=== PATIENT | male | born 1975 | race African-American/Black ===

== ENCOUNTER 2017-10-24 02:07 | Inpatient (IN) | payer MEDICAID, OTHER ==
[~2017-10-24] VITALS: Ht 185.4 cm; Wt 72.8 kg
[2017-10-24] MEDS ORDERED: ACETAMINOPHEN 325 MG TABLET ONE (02:22)
[2017-10-24] MEDS ORDERED: SODIUM CHLORIDE FLUSH 10ML SYR IVF ONE (02:30)
[2017-10-24] MEDS ORDERED: ACETAMINOPHEN 325 MG TABLET PO ONE (02:30)
[2017-10-24] MEDS ORDERED: SODIUM CHLORIDE 0.9% 1,000ML IVBOLUS ONE (02:30)
[2017-10-24 02:52] LABS: MEAN CORPUSCULAR HEMOGLOBIN 31.8 pg (27.5-34.5); MEAN CORPUSCULAR VOLUME 93.6 fL (81-97); MEAN PLATELET VOLUME 8.1 fL (7.4-10.4); PLATELET COUNT 194 x10^3/uL (130-400); RED BLOOD COUNT 4.23 x10^6/uL (4.38-5.82); RED CELL DISTRIBUTION WIDTH 14.1 % (9.4-14.8)
[2017-10-24 03:03] LABS: ALANINE AMINOTRANSFERASE 24 U/L (12-78); ALBUMIN 3.4 g/dL (3.4-5.0); ANION GAP 9 mmol/L (5-15); CALCIUM 8.9 mg/dL (8.5-10.1); CHLORIDE 98 mmol/L (98-107)
[2017-10-24 03:05] LABS: MD YES
[2017-10-24 03:06] LABS: ALKALINE PHOSPHATASE 89 U/L (45-117); CREATININE 1.08 mg/dL (0.7-1.3); TOTAL PROTEIN 9.1 g/dL (6.4-8.2)
[2017-10-24 03:07] LABS: BAND#(MANUAL) 0.15 x10^3/uL; BANDS%(MANUAL) 1 % (0-7); LYMPH#(MANUAL) 1.19 x10^3/uL (1-3.4); LYMPHS% (MANUAL) 8 % (22-44); MONOS#(MANUAL) 0.89 x10^3/uL (0.3-2.7); MONOS% (MANUAL) 6 % (2-9); SEG#(MANUAL) 12.67 x10^3/uL (1.8-6.8); SEGS% (MANUAL) 85 % (42-75)
[2017-10-24 03:08] LABS: <PLATELET ESTIMATE> ADEQUATE; <PLT MORPHOLOGY> NORMAL PLT MORPH; ANISOCYTOSIS 1+
[2017-10-24] MEDS ORDERED: AZITHROMYCIN 500 MG in SODIUM CHLORIDE 0.9% 250 ML IVPB ONE (03:30)
[2017-10-24] MEDS ORDERED: CEFTRIAXONE PMX 1GM/50ML 50 ML IVPB ONE (03:30)
[2017-10-24] MEDS ORDERED: CEFTRIAXONE PMX 1GM/50ML 50 ML ONE (03:47)
[2017-10-24] MEDS ORDERED: IBUPROFEN 200 MG TABLET ONE (03:47)
[2017-10-24] MEDS ORDERED: SODIUM CHLORIDE 0.9% 1,000 ML IV ONE (03:57)
[2017-10-24] MEDS ORDERED: IBUPROFEN 200 MG TABLET PO ONE (04:00)
[2017-10-24] MEDS ORDERED: ONDANSETRON 2MG/ML, 2ML IVPush PRN (04:00)
[2017-10-24 04:07] LABS: RAPID INFLUENZA A Negative (Negative); RAPID INFLUENZA B Negative (Negative)
[2017-10-24 05:30] VITALS: BP 106/86
[2017-10-24] MEDS ORDERED: ONDANSETRON ODT 4 MG PO PRN (07:30)
[2017-10-24] MEDS ORDERED: DOCUSATE 100 MG CAPSULE PO PRN (07:30)
[2017-10-24] MEDS ORDERED: ACETAMINOPHEN 325 MG TABLET PO PRN (07:30)
[2017-10-24] MEDS ORDERED: ENALAPRILAT 1.25 MG/ML, 2ML IVPush PRN (07:30)
[2017-10-24] MEDS: ENOXAPARIN 40 MG/0.4 ML SQ SCH (08:42)
[2017-10-24] MEDS: SODIUM CHLORIDE 0.9% 1,000 ML IV SCH ×2 (08:42→16:58)
[2017-10-24] MEDS: CEFTRIAXONE PMX 2GM/50ML 50 ML IV SCH (08:42)
[2017-10-24] MEDS: AZITHROMYCIN 500 MG in SODIUM CHLORIDE 0.9% 250 ML IV SCH (09:20)
[2017-10-24 12:29] VITALS: BP 95/59
[2017-10-24 19:21] VITALS: BP 95/58
[2017-10-25 02:52] VITALS: BP 97/62
[2017-10-25 03:48] LABS: ALANINE AMINOTRANSFERASE 16 U/L (12-78); ALBUMIN 2.3 g/dL (3.4-5.0); ANION GAP 6 mmol/L (5-15); CALCIUM 8.4 mg/dL (8.5-10.1); CHLORIDE 108 mmol/L (98-107); CREATININE 0.81 mg/dL (0.7-1.3)
[2017-10-25 03:50] LABS: BASOPHILS # (AUTO) 0.01 x10^3/uL (0-0.1); BASOPHILS % (AUTO) 0 % (0-1); EOSINOPHILS # (AUTO) 0.27 x10^3/uL (0-0.4); EOSINOPHILS % (AUTO) 4 % (1-7); LYMPHOCYTES # (AUTO) 0.76 x10^3/uL (1-3.4); LYMPHOCYTES % (AUTO) 11 % (22-44); MD NO; MEAN CORPUSCULAR HGB CONC 33.3 g/dL (33.2-36.2); MEAN CORPUSCULAR VOLUME 96.3 fL (81-97); MEAN PLATELET VOLUME 8.2 fL (7.4-10.4); MONOCYTES # (AUTO) 0.84 x10^3/uL (0.2-0.8); MONOCYTES % (AUTO) 13 % (2-9); NEUTROPHILS # (AUTO) 4.85 x10^3/uL (1.8-6.8); NEUTROPHILS % (AUTO) 72 % (42-75); PLATELET COUNT 191 x10^3/uL (130-400); RED BLOOD COUNT 3.75 x10^6/uL (4.38-5.82); RED CELL DISTRIBUTION WIDTH 13.9 % (9.4-14.8)
[2017-10-25 03:51] LABS: ALKALINE PHOSPHATASE 69 U/L (45-117); BILIRUBIN,TOTAL 0.7 mg/dL (0.2-1.0); TOTAL PROTEIN 6.8 g/dL (6.4-8.2)
[2017-10-25] MEDS: SODIUM CHLORIDE 0.9% 1,000 ML IV SCH (03:56)
[2017-10-25 06:57] VITALS: BP 104/68
[2017-10-25] MEDS: CEFTRIAXONE PMX 2GM/50ML 50 ML IV SCH (08:50)
[2017-10-25] MEDS: ENOXAPARIN 40 MG/0.4 ML SQ SCH (08:50)
[2017-10-25] MEDS ORDERED: AZIT500T5 PO (09:20)
[2017-10-25] MEDS ORDERED: CEFD300C37 PO (09:25)
[2017-10-25] MEDS: AZITHROMYCIN 500 MG in SODIUM CHLORIDE 0.9% 250 ML IV SCH (10:28)
== END 2017-10-25 12:50 | disposition home or self-care (01) | DRG 871 ==
LOC: ED 03:17 → EDIP 03:57 → 3NW 04:52 → DCLOUNGE 10-25 12:39
PROVIDERS: ADMIT Surgery; ATTEND Surgery
DX: A41.9 Sepsis, unspecified organism (principal); J15.9 Unspecified bacterial pneumonia; E87.1 Hypo-osmolality and hyponatremia; F17.200 Nicotine dependence, unspecified, uncomplicated; F12.90 Cannabis use, unspecified, uncomplicated; R73.9 Hyperglycemia, unspecified; R00.0 Tachycardia, unspecified; Z59.0 Homelessness; F10.20 Alcohol dependence, uncomplicated
CPT/HCPCS: 36415; 71046; 80053; 83605; 83735; 84100; 84145; 85025; 87040; 87070; 87205; 87400; 93005; 96365; J0456; J0696; J1650; J7030; J7050

== ENCOUNTER 2017-12-24 06:49 | Emergency (ER) | payer MEDICAID ==
[~2017-12-24] VITALS: Ht 185.4 cm; Wt 71.5 kg
[~2017-12-24 06:49] MED LIST: AZIT500T5 PO; CEFD300C37 PO
[2017-12-24 08:28] LABS: MEAN CORPUSCULAR HGB CONC 33.5 g/dL (33.2-36.2); MEAN CORPUSCULAR VOLUME 92.5 fL (81-97); MEAN PLATELET VOLUME 7.5 fL (7.4-10.4); PLATELET COUNT 233 x10^3/uL (130-400); RED CELL DISTRIBUTION WIDTH 14.9 % (9.4-14.8)
[2017-12-24 08:40] LABS: ALANINE AMINOTRANSFERASE 25 U/L (12-78); ALBUMIN 2.8 g/dL (3.4-5.0); ANION GAP 6 mmol/L (5-15); CALCIUM 8.5 mg/dL (8.5-10.1); CHLORIDE 98 mmol/L (98-107); CREATININE 0.89 mg/dL (0.7-1.3)
[2017-12-24 08:42] LABS: ALKALINE PHOSPHATASE 86 U/L (45-117); BILIRUBIN,TOTAL 1.8 mg/dL (0.2-1.0); TOTAL PROTEIN 7.8 g/dL (6.4-8.2)
[2017-12-24 08:46] LABS: BASOPHILS # (AUTO) 0.02 x10^3/uL (0-0.1); BASOPHILS % (AUTO) 0 % (0-1); EOSINOPHILS # (AUTO) 0.17 x10^3/uL (0-0.4); EOSINOPHILS % (AUTO) 2 % (1-7); LYMPHOCYTES # (AUTO) 0.61 x10^3/uL (1-3.4); LYMPHOCYTES % (AUTO) 5 % (22-44); MD SCAN; MONOCYTES # (AUTO) 1.34 x10^3/uL (0.2-0.8); MONOCYTES % (AUTO) 12 % (2-9); NEUTROPHILS # (AUTO) 9.36 x10^3/uL (1.8-6.8); NEUTROPHILS % (AUTO) 81 % (42-75)
[2017-12-24] MEDS ORDERED: LEVOFLOXACIN 750 MG TABLET ONE (10:24)
[2017-12-24] MEDS ORDERED: LEVOFLOXACIN 750 MG TABLET PO ONE (10:30)
[2017-12-24 10:32] VITALS: BP 105/59
== END 2017-12-24 10:35 | disposition home or self-care (01) ==
LOC: ED 07:55
DX: J15.9 Unspecified bacterial pneumonia (principal); F17.210 Nicotine dependence, cigarettes, uncomplicated
CPT/HCPCS: 36415; 71046; 80053; 83605; 85025; 87040; 93005; 99285

== ENCOUNTER 2018-08-04 15:38 | Emergency (ER) | payer OTHER, MEDICAID ==
[~2018-08-04] VITALS: Ht 185.4 cm; Wt 72.0 kg
[2018-08-04] MEDS ORDERED: PROPOFOL 10 MG/ML, 20ML ONE ×2 (15:58→15:59)
[2018-08-04] MEDS ORDERED: SODIUM CHLORIDE FLUSH 10ML SYR IVF ONE (16:00)
[2018-08-04] MEDS ORDERED: PLEASE ENTER HEIGHT AND WEIGHT MC SCH (16:00)
[2018-08-04] MEDS ORDERED: FENTANYL PF 100 MCG/2ML IV ONE (16:00)
[2018-08-04] MEDS ORDERED: FENTANYL PF 100 MCG/2ML ONE (16:00)
[2018-08-04] MEDS ORDERED: PROPOFOL 10 MG/ML, 20ML IVPush ONE (17:00)
[2018-08-04 17:24] VITALS: BP 115/72
== END 2018-08-04 17:34 | disposition home or self-care (01) ==
LOC: ED 17:28
DX: S43.005A Unspecified dislocation of left shoulder joint, initial encounter (principal); F17.200 Nicotine dependence, unspecified, uncomplicated; X58.XXXA Exposure to other specified factors, initial encounter; Y93.89 Activity, other specified; Y92.89 Other specified places as the place of occurrence of the external cause; Y99.8 Other external cause status
CPT/HCPCS: 23650; 73020; 99285; J2704; J3010

== ENCOUNTER 2018-09-09 16:57 | Emergency (ER) | payer OTHER, MEDICAID ==
[~2018-09-09] VITALS: Ht 185.4 cm; Wt 70.0 kg
[2018-09-09 16:59] VITALS: BP 144/103
== END 2018-09-09 18:06 | disposition home or self-care (01) ==
LOC: ED 17:03
DX: Z00.00 Encounter for general adult medical examination without abnormal findings (principal)
CPT/HCPCS: 36415; 86705; 86706; 86803; 87340; 87521; 87806; 99283; G0475

== ENCOUNTER 2018-10-12 19:02 | Inpatient (IN) | payer MEDICAID, OTHER ==
[~2018-10-12] VITALS: Ht 185.4 cm; Wt 74.8 kg
[2018-10-12] MEDS ORDERED: ACETAMINOPHEN 325 MG TABLET PO ONE (19:30)
[2018-10-12] MEDS ORDERED: ACETAMINOPHEN 325 MG TABLET ONE (19:30)
[2018-10-12 19:36] LABS: RAPID INFLUENZA A Negative (Negative); RAPID INFLUENZA B Negative (Negative)
[2018-10-12 19:51] LABS: BASOPHILS % (AUTO) 0 % (0-1); EOSINOPHILS # (AUTO) 0.04 x10^3/uL (0-0.4); EOSINOPHILS % (AUTO) 0 % (1-7); LYMPHOCYTES % (AUTO) 4 % (22-44); MD NO; MEAN CORPUSCULAR HEMOGLOBIN 32.2 pg (27.5-34.5); MEAN CORPUSCULAR HGB CONC 34.1 g/dL (33.2-36.2); MEAN CORPUSCULAR VOLUME 94.3 fL (81-97); MONOCYTES # (AUTO) 0.84 x10^3/uL (0.2-0.8); MONOCYTES % (AUTO) 8 % (2-9); NEUTROPHILS # (AUTO) 9.68 x10^3/uL (1.8-6.8); NEUTROPHILS % (AUTO) 88 % (42-75); PLATELET COUNT 243 x10^3/uL (130-400); RED BLOOD COUNT 3.89 x10^6/uL (4.38-5.82); RED CELL DISTRIBUTION WIDTH 14.1 % (9.4-14.8)
[2018-10-12] MEDS ORDERED: CEFTRIAXONE 1,000 MG in SODIUM CHLORIDE 0.9% 50 ML IVPB ONE (20:00)
[2018-10-12] MEDS ORDERED: AZITHROMYCIN 500 MG in SODIUM CHLORIDE 0.9% 250 ML IV ONE (20:00)
[2018-10-12 20:04] LABS: ALBUMIN 3.8 g/dL (3.4-5.0); ANION GAP 9 mmol/L (5-15); CALCIUM 8.8 mg/dL (8.5-10.1); CHLORIDE 105 mmol/L (98-107); CREATININE 0.96 mg/dL (0.7-1.3)
[2018-10-12 20:08] LABS: TROPONIN I < 0.015 ng/mL (0.000-0.045)
[2018-10-12] MEDS ORDERED: CEFTRIAXONE 1,000 MG ONE (20:32)
[2018-10-12] MEDS ORDERED: CEFTRIAXONE PMX 1GM/50ML 50 ML ONE (20:36)
[2018-10-12] MEDS ORDERED: SODIUM CHLORIDE 0.9% 1,000 ML IV SCH (21:24)
[2018-10-12] MEDS ORDERED: morphine SULFATE 10 MG/ML, 1ML IVPush PRN (21:30)
[2018-10-12] MEDS ORDERED: POLYETHYLENE GLYCOL 17 GM PACKET PO PRN (21:30)
[2018-10-12] MEDS ORDERED: OXYcodone IR 5MG TABLET PO PRN (21:30)
[2018-10-12] MEDS ORDERED: PROMETHAZINE 25 MG/ML, 1ML IM PRN (21:30)
[2018-10-12] MEDS ORDERED: LABETALOL 5MG/ML, 20ML IVPush PRN (21:30)
[2018-10-12] MEDS ORDERED: BISACODYL 10 MG SUPP PR PRN (21:30)
[2018-10-12] MEDS ORDERED: GABAPENTIN 300 MG CAPSULE PO PRN (21:30)
[2018-10-12] MEDS ORDERED: DOCUSATE 100 MG CAPSULE PO PRN (21:30)
[2018-10-12] MEDS ORDERED: ONDANSETRON ODT 4 MG PO PRN (21:30)
[2018-10-12] MEDS ORDERED: ONDANSETRON 2MG/ML, 2ML IVPush PRN (21:30)
[2018-10-12] MEDS ORDERED: CEFTRIAXONE PMX 1GM/50ML 50 ML IV ONE (21:30)
[2018-10-12] MEDS ORDERED: hydrALAzine 20 MG/ML, 1ML IVPush PRN (21:30)
[2018-10-12 22:26] LABS: HEMOGLOBIN A1C 5.4 % (4.2-6.3)
[2018-10-12 22:29] VITALS: BP 106/69
[2018-10-12 22:30] LABS: FREE T4 (FREE THYROXINE) 0.82 ng/dL (0.76-1.46); THYROID STIMULATING HORMONE 0.432 mIU/L (0.358-3.740)
[2018-10-12 23:12] LABS: MICROSCOPIC AUTO
[2018-10-12] MEDS: SODIUM CHLORIDE 0.9% 1,000 ML IV SCH (23:14)
[2018-10-12] MEDS: HEPARIN 5,000 UNITS/ML, 1ML SQ SCH (23:14)
[2018-10-12 23:18] LABS: CULTURE INDICATED? YES
[2018-10-13] MEDS ORDERED: ACETAMINOPHEN 325 MG TABLET PO PRN (02:00)
[2018-10-13 02:20] VITALS: BP 108/63
[2018-10-13 06:14] LABS: CHLORIDE 106 mmol/L (98-107)
[2018-10-13 06:18] LABS: BASOPHILS # (AUTO) 0.01 x10^3/uL (0-0.1); BASOPHILS % (AUTO) 0 % (0-1); EOSINOPHILS # (AUTO) 0.08 x10^3/uL (0-0.4); EOSINOPHILS % (AUTO) 1 % (1-7); LYMPHOCYTES # (AUTO) 0.57 x10^3/uL (1-3.4); LYMPHOCYTES % (AUTO) 8 % (22-44); MD NO; MEAN CORPUSCULAR HEMOGLOBIN 31.8 pg (27.5-34.5); MEAN CORPUSCULAR HGB CONC 33.6 g/dL (33.2-36.2); MEAN CORPUSCULAR VOLUME 94.5 fL (81-97); MEAN PLATELET VOLUME 7.6 fL (7.4-10.4); MONOCYTES # (AUTO) 1.08 x10^3/uL (0.2-0.8); MONOCYTES % (AUTO) 15 % (2-9); NEUTROPHILS # (AUTO) 5.38 x10^3/uL (1.8-6.8); NEUTROPHILS % (AUTO) 76 % (42-75); PLATELET COUNT 185 x10^3/uL (130-400); RED BLOOD COUNT 3.18 x10^6/uL (4.38-5.82); RED CELL DISTRIBUTION WIDTH 14.3 % (9.4-14.8)
[2018-10-13] MEDS: SODIUM CHLORIDE 0.9% 1,000 ML IV SCH ×2 (06:19→12:29)
[2018-10-13 06:23] LABS: ALANINE AMINOTRANSFERASE 25 U/L (12-78); ALBUMIN 2.8 g/dL (3.4-5.0); ALKALINE PHOSPHATASE 82 U/L (45-117); ANION GAP 8 mmol/L (5-15); CALCIUM 7.6 mg/dL (8.5-10.1); CHOLESTEROL, TOTAL 149 mg/dL (140-239); CREATININE 0.73 mg/dL (0.7-1.3); HDL CHOL % 51 % (26-37); HDL CHOLESTEROL (DIRECT) 76 mg/dL (40-60); LDL CHOLESTEROL,CALCULATED 57 mg/dL (54-169); LDL/HDL RATIO 0.8 (0.5-3.0); TOTAL PROTEIN 7.2 g/dL (6.4-8.2); TRIGLYCERIDES 82 mg/dL (50-200); VLDL CHOLESTEROL 16 mg/dL (0-25)
[2018-10-13 07:22] VITALS: BP 104/63
[2018-10-13] MEDS: HEPARIN 5,000 UNITS/ML, 1ML SQ SCH ×2 (07:56→15:56)
[2018-10-13] MEDS: MULTIVITAMIN 1 TABLET PO SCH (07:56)
[2018-10-13 13:28] VITALS: BP 101/62
[2018-10-13] MEDS ORDERED: KETOROLAC 30 MG/1 ML IVPush PRN (15:00)
[2018-10-13 18:54] VITALS: BP 106/59
[2018-10-13] MEDS: CEFTRIAXONE PMX 2GM/50ML 50 ML IV SCH (19:27)
[2018-10-13] MEDS: AZITHROMYCIN 500 MG in SODIUM CHLORIDE 0.9% 250 ML IV SCH (20:09)
[2018-10-13] MEDS ORDERED: SODIUM CHLORIDE 0.9% 1,000 ML IV SCH (21:24)
[2018-10-14] MEDS: HEPARIN 5,000 UNITS/ML, 1ML SQ SCH ×3 (00:13→16:25)
[2018-10-14 01:15] VITALS: BP 101/63
[2018-10-14] MEDS: SODIUM CHLORIDE 0.9% 1,000 ML IV SCH ×2 (03:17→16:25)
[2018-10-14 05:47] LABS: MEAN CORPUSCULAR HEMOGLOBIN 32.1 pg (27.5-34.5); MEAN CORPUSCULAR HGB CONC 33.7 g/dL (33.2-36.2); MEAN CORPUSCULAR VOLUME 95.3 fL (81-97); MEAN PLATELET VOLUME 7.8 fL (7.4-10.4); PLATELET COUNT 198 x10^3/uL (130-400); RED BLOOD COUNT 3.11 x10^6/uL (4.38-5.82); RED CELL DISTRIBUTION WIDTH 13.9 % (9.4-14.8)
[2018-10-14 05:57] LABS: CALCIUM 7.8 mg/dL (8.5-10.1); CHLORIDE 103 mmol/L (98-107); CREATININE 0.88 mg/dL (0.7-1.3)
[2018-10-14 06:14] LABS: ANION GAP 4 mmol/L (5-15)
[2018-10-14 06:25] LABS: BASOPHILS # (AUTO) 0.01 x10^3/uL (0-0.1); BASOPHILS % (AUTO) 0 % (0-1); EOSINOPHILS # (AUTO) 0.13 x10^3/uL (0-0.4); EOSINOPHILS % (AUTO) 1 % (1-7); LYMPHOCYTES # (AUTO) 0.73 x10^3/uL (1-3.4); LYMPHOCYTES % (AUTO) 8 % (22-44); MD SCAN; MONOCYTES # (AUTO) 0.98 x10^3/uL (0.2-0.8); MONOCYTES % (AUTO) 11 % (2-9); NEUTROPHILS # (AUTO) 6.98 x10^3/uL (1.8-6.8); NEUTROPHILS % (AUTO) 79 % (42-75)
[2018-10-14 08:12] VITALS: BP 101/64
[2018-10-14] MEDS: MULTIVITAMIN 1 TABLET PO SCH (09:02)
[2018-10-14 14:08] VITALS: BP 112/71
[2018-10-14 19:06] VITALS: BP 111/75
[2018-10-14] MEDS: CEFTRIAXONE PMX 2GM/50ML 50 ML IV SCH (20:20)
[2018-10-14] MEDS: AZITHROMYCIN 500 MG in SODIUM CHLORIDE 0.9% 250 ML IV SCH (21:36)
[2018-10-15 02:08] VITALS: BP 119/67
[2018-10-15] MEDS: SODIUM CHLORIDE 0.9% 1,000 ML IV SCH (06:14)
[2018-10-15 07:14] VITALS: BP 118/79
[2018-10-15] MEDS: MULTIVITAMIN 1 TABLET PO SCH (08:39)
[2018-10-15] MEDS: HEPARIN 5,000 UNITS/ML, 1ML SQ SCH ×2 (08:39)
[2018-10-15] MEDS ORDERED: CEFD300C37 PO (08:56)
[2018-10-15 11:38] VITALS: BP 112/72
== END 2018-10-15 12:24 | disposition home or self-care (01) | DRG 871 ==
LOC: ED 19:55 → EDIP 21:28 → 3NE 22:14 → DCLOUNGE 10-15 12:15
PROVIDERS: ADMIT Internal Medicine; ATTEND Internal Medicine
DX: A41.9 Sepsis, unspecified organism (principal); E43 Unspecified severe protein-calorie malnutrition; J15.9 Unspecified bacterial pneumonia; J96.01 Acute respiratory failure with hypoxia; E87.2 Acidosis; D64.9 Anemia, unspecified; Z68.21 Body mass index [BMI] 21.0-21.9, adult; F10.120 Alcohol abuse with intoxication, uncomplicated; F17.210 Nicotine dependence, cigarettes, uncomplicated; Y90.8 Blood alcohol level of 240 mg/100 ml or more; Z87.01 Personal history of pneumonia (recurrent); Z91.14 Patient's other noncompliance with medication regimen
CPT/HCPCS: 36415; 71045; 80048; 80053; 80061; 80307; 81001; 82040; 82306; 82607; 83036; 83605; 83735; 84145; 84439; 84443; 84484; 85025; 87040; 87086; 87400; 96365; 96375; 99285; G0378; J0456; J0696; J1644; J1885; J7030; J7050

== ENCOUNTER 2019-03-26 21:17 | Emergency (ER) | payer MEDICAID, OTHER ==
[~2019-03-26] VITALS: Ht 182.9 cm; Wt 70.0 kg
[2019-03-26 21:19] VITALS: BP 127/73
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
[2019-03-26] MEDS ORDERED: DIPH,PERTUSS(ACELL),TET VAC/PF 0.5 ML IM-VACC ONE ×2 (22:00→22:01)
[2019-03-26] MEDS ORDERED: LIDOCAINE 1%, 10ML INFIL ONE (22:00)
[2019-03-26] MEDS ORDERED: LIDOCAINE-MPF 1%, 5ML ONE (22:01)
[2019-03-26] MEDS ORDERED: BACITRACIN ZINC OINT 500U/GM, 0.9 GM ONE (22:01)
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
== END 2019-03-26 22:34 | disposition home or self-care (01) ==
LOC: ED 22:28
DX: S51.811A Laceration without foreign body of right forearm, initial encounter (principal); W25.XXXA Contact with sharp glass, initial encounter; Y93.89 Activity, other specified; Y92.410 Unspecified street and highway as the place of occurrence of the external cause; Y99.8 Other external cause status
CPT/HCPCS: 12032; 90471; 90715; 99285; J3490

== ENCOUNTER 2019-04-18 19:25 | Emergency (ER) | payer OTHER ==
[~2019-04-18] VITALS: Ht 185.4 cm; Wt 68.6 kg
[2019-04-18] MEDS ORDERED: HYDROmorphone 2 MG/ML, 1ML ONE (19:59)
[2019-04-18] MEDS ORDERED: HYDROmorphone 2 MG/ML, 1ML IVPush STA (20:04)
--- NOTE | 2019-04-18 20:07 | NUR ---
PT AMBULATORY TO T2. CO L SHOULDER PAIN X THIRTY MINUTES. +CMS. HX OF SHOULDER DISLOCATION X THREE REQUIRING SEDATION/REDUCTION. PT REPORTS "I WAS JUST LAYING IN BED WITH MY " PRIOR TO INJURY. IV ESTBALISHED. ERP AT BEDSIDE TO ATTEMPT REDUCTION. VERBAL ORDER RECEIVED FOR 1MG DILAUDID. PT MEDICATED PER ORDER. REDUCTION UNSUCCESSFUL. AWAITING FURTHER ORDERS.
[2019-04-18] MEDS ORDERED: PROPOFOL 10 MG/ML, 20ML ONE (20:13)
--- NOTE | 2019-04-18 20:28 | NUR ---
CONCENT FOR PROCEDURAL SEDATION AND REDUCTION OF L SHOULDER SIGNED AND IS AT BEDSIDE. BP/SPO2/ECG MONITORING IN PLACE. PT ON 2L O2 BY NC FOR SUPPORT.
[2019-04-18] MEDS ORDERED: PROPOFOL 10 MG/ML, 20ML IVPush ONE (20:30)
--- NOTE | 2019-04-18 21:08 | NUR ---
2055: TIME OUT 2057: BEGIN PROCEDURE. PT MEDICATED BY ERP WITH PROPOFOL. TOTAL 120MG IVP GIVEN FOR SEDATIVE EFFECT. 2104: REDUCTION COMPLETED. +CMS. SLING PLACED. AIRWAY PATENT; MAINTAINING AIRWAY.
[2019-04-18 21:10] VITALS: BP 124/91
--- NOTE | 2019-04-18 21:32 | NUR ---
PT AWAKE/ALERT. SPEECH CLEAR. PT ANSWERING ALL QUESTIONS APPROPRIATELY AND FOLLOWING ALL COMMANDS. MAINTAINING SPO2 >90% ON RA. RR WNL. +CMS. SPLING IN PLACE. PT TAKING PO FLUIDS WO DIFFICULTY. REPEAT XRAY COMPLETED. CHART UP FOR RECHECK.
--- NOTE | 2019-04-18 21:58 | NUR ---
VSS. PT AMBULATORY WITH EASE AND CONTINUES TO DENY PAIN. PT TAKING PO FLUIDS WO DIFFICULTY. IV DC'D. DC EDUCATION PROVIDED, PT DEMONSTRATES UNDERSTANDING. PT AMBULATED STEADILY TO DC WITH RN. PT TO USE TAXI FOR SAFE TRANSPORT HOME.
== END 2019-04-18 22:02 | disposition home or self-care (01) ==
LOC: ED 21:28 → MERGE 21:28 → ED 22:02
DX: S43.005A Unspecified dislocation of left shoulder joint, initial encounter (principal); F17.200 Nicotine dependence, unspecified, uncomplicated; X58.XXXA Exposure to other specified factors, initial encounter; Y93.89 Activity, other specified; Y92.009 Unspecified place in unspecified non-institutional (private) residence as the place of occurrence of the external cause; Y99.8 Other external cause status
CPT/HCPCS: 23650; 73030; 93005; 96374; 99285; J1170

== ENCOUNTER 2019-05-25 10:49 | Emergency (ER) | payer OTHER ==
[~2019-05-25] VITALS: Ht 182.9 cm; Wt 72.3 kg
[2019-05-25 11:30] VITALS: BP 115/69
== END 2019-05-25 11:34 | disposition home or self-care (01) ==
LOC: ED 11:18
DX: S43.005A Unspecified dislocation of left shoulder joint, initial encounter (principal); X58.XXXA Exposure to other specified factors, initial encounter; Y93.89 Activity, other specified; Y92.89 Other specified places as the place of occurrence of the external cause; Y99.8 Other external cause status
CPT/HCPCS: 99283

== ENCOUNTER 2019-11-06 21:57 | Emergency (ER) | payer MEDICAID ==
[~2019-11-06] VITALS: Ht 193 cm; Wt 80.0 kg
[~2019-11-06 21:57] MED LIST changes: +AZIT500T10 PO; -AZIT500T5 PO
[2019-11-06 22:09] VITALS: BP 128/78
--- NOTE | 2019-11-06 22:24 | NUR ---
PT RESTING IN VIEW OF NURSES STATION, SEEN BY ERP, REFUSED BREATHALYZER, ERP STATES HE WILL REASSESS IN AN HOUR
--- NOTE | 2019-11-06 22:55 | NUR ---
PT ENCOURAGED TO STAY FOR SECOND ERP EVAL, PT REFUSED BREATHALYZER A SECOND TIME, ELOPED OUT LOBBY WITH STEADY GAIT, [id number]
== END 2019-11-06 23:30 | disposition left against medical advice (07) ==
LOC: ED 23:24
DX: G89.29 Other chronic pain (principal); M25.512 Pain in left shoulder; F10.129 Alcohol abuse with intoxication, unspecified; Y90.0 Blood alcohol level of less than 20 mg/100 ml
CPT/HCPCS: 99283

== ENCOUNTER 2019-11-08 10:00 | Emergency (ER) | payer MEDICAID ==
[~2019-11-08] VITALS: Ht 185.4 cm; Wt 72.6 kg
--- NOTE | 2019-11-08 10:36 | NUR ---
Pt ambulatory to xray with tech.
[2019-11-08] MEDS ORDERED: PROPOFOL 10 MG/ML, 20ML IV ONE (11:00)
[2019-11-08] MEDS ORDERED: PROPOFOL 10 MG/ML, 20ML ONE (11:01)
--- NOTE | 2019-11-08 11:36 | NUR ---
WM SAHM AT BEDSIDE FOR PROCEDURE LEFT ARM DISLOCATION. SEE PROCEDURAL SEDATION REPORT. VSS REMAINED STABLE, PROPOFOL 100 MCG ADMINISTERED BY WM. XRAY AND SLING COMPLETED AFTER PROCEDURE. CMS INTACT.
--- NOTE | 2019-11-08 12:51 | NUR ---
DISCHARGE INSTRUCTIONS REVIEWED
[2019-11-08 13:00] VITALS: BP 117/72
== END 2019-11-08 13:06 | disposition home or self-care (01) ==
LOC: ED 13:00
DX: S43.005A Unspecified dislocation of left shoulder joint, initial encounter (principal); F17.200 Nicotine dependence, unspecified, uncomplicated; X58.XXXA Exposure to other specified factors, initial encounter; Y93.89 Activity, other specified; Y92.009 Unspecified place in unspecified non-institutional (private) residence as the place of occurrence of the external cause; Y99.8 Other external cause status
CPT/HCPCS: 23650; 73030; 99285; J2704

== ENCOUNTER 2020-04-02 10:36 | Emergency (ER) | payer MEDICAID ==
[~2020-04-02] VITALS: Ht 185.4 cm; Wt 74.0 kg
[2020-04-02 10:45] VITALS: BP 113/75
== END 2020-04-02 11:23 | disposition home or self-care (01) ==
LOC: ED 10:53
DX: S63.521A Sprain of radiocarpal joint of right wrist, initial encounter (principal); F17.200 Nicotine dependence, unspecified, uncomplicated; X50.1XXA Overexertion from prolonged static or awkward postures, initial encounter; Y93.89 Activity, other specified; Y92.69 Other specified industrial and construction area as the place of occurrence of the external cause; Y99.0 Civilian activity done for income or pay
CPT/HCPCS: 99281

== ENCOUNTER 2020-06-26 21:16 | Emergency (ER) | payer MEDICAID ==
[~2020-06-26] VITALS: Ht 190.5 cm; Wt 82.0 kg
[2020-06-26 21:18] VITALS: BP 131/81
--- NOTE | 2020-06-26 22:30 | NUR ---
PT UNSTEADY WHILE ATTEMPTING TO LEAVE ROOM. PT REMINDED TO STAY ON GURNEY FOR SAFETY. PT EASILY REDIRECTED.
[2020-06-26 23:18] LABS: ALANINE AMINOTRANSFERASE 45 U/L (12-78); ALBUMIN 4.2 g/dL (3.4-5.0); ANION GAP 9 mmol/L (5-15); BASOPHILS # (AUTO) 0.02 x10^3/uL (0-0.1); BASOPHILS % (AUTO) 0 % (0-1); CALCIUM 8.5 mg/dL (8.5-10.1); CHLORIDE 108 mmol/L (98-107); CREATININE 1.07 mg/dL (0.7-1.3); EOSINOPHILS # (AUTO) 0.05 x10^3/uL (0-0.4); EOSINOPHILS % (AUTO) 1 % (1-7); LYMPHOCYTES # (AUTO) 1.62 x10^3/uL (1-3.4); LYMPHOCYTES % (AUTO) 23 % (22-44); MD NO; MEAN CORPUSCULAR HEMOGLOBIN 30.6 pg (27.5-34.5); MEAN CORPUSCULAR HGB CONC 32.7 g/dL (33.2-36.2); MEAN CORPUSCULAR VOLUME 93.6 fL (81-97); MEAN PLATELET VOLUME 7.9 fL (7.4-10.4); MONOCYTES # (AUTO) 0.42 x10^3/uL (0.2-0.8); MONOCYTES % (AUTO) 6 % (2-9); NEUTROPHILS % (AUTO) 70 % (42-75); PLATELET COUNT 239 x10^3/uL (130-400); RED BLOOD COUNT 4.69 x10^6/uL (4.38-5.82); RED CELL DISTRIBUTION WIDTH 13.4 % (9.4-14.8)
[2020-06-26 23:22] LABS: ALKALINE PHOSPHATASE 60 U/L (45-117); BILIRUBIN,TOTAL 0.9 mg/dL (0.2-1.0); TOTAL PROTEIN 7.9 g/dL (6.4-8.2)
--- NOTE | 2020-06-26 23:23 | NUR ---
PT CONT TO GET OUT OF BED, PT AGAIN REMINDED TO STAY ON GURNEY SO HE DOES NOT FALL. PT PROVIDED BLANKETS FOR COMFORT.
--- NOTE | 2020-06-27 00:21 | NUR ---
PT AMBULATED WITH STEADY GAIT TO RESTROOM. PT PROVIDED WITH BUS PASS FOR SAFE DISCHARGE HOME.
== END 2020-06-27 00:28 | disposition home or self-care (01) ==
LOC: ED 21:40
DX: F10.120 Alcohol abuse with intoxication, uncomplicated (principal); Z72.9 Problem related to lifestyle, unspecified; Y90.0 Blood alcohol level of less than 20 mg/100 ml
CPT/HCPCS: 36415; 80053; 80307; 85025; 99283